=== PATIENT | male | born 1960 | race Caucasian/White ===

== ENCOUNTER 2018-08-17 22:26 | Inpatient (IN) | payer MEDICAID ==
[~2018-08-17] VITALS: Ht 188 cm; Wt 83.9 kg
[2018-08-17 23:03] VITALS: BP 123/61
--- NOTE | 2018-08-17 23:03 | NUR ---
MS MATERIAL REPROCESSING ASSOCIATE NOTES Received patient via gurney from [facility] assisted by 2 vp respiratory. Admitted to MS 324-1 due to R Hand Cellulitis under the service of Dr. Wilson. Assisted to bed comfortably. Patient noted ambulatory with steady gait. Admission routine done. Skin assessments done, photos taken and documented. Kept on bed clean, dry and comfortable. Call light within easy reach. Will continue to monitor accordingly.
[2018-08-17 23:58] VITALS: BP 123/61
--- NOTE | 2018-08-18 00:30 | NUR ---
MS RN NOTES Patient complained pain of R hand, 12/25. Awaiting for medication orders and verification at this time. Offered to patient to apply cold compress, patient refused. Offered to use sling, patient agreed. Informed patient that RN will administer the due meds once orders has been verified. Patient verbalized okay to wait. Will continue to monitor accordingly.
[2018-08-18] MEDS ORDERED: RALT400T PO (00:40)
[2018-08-18] MEDS ORDERED: FINA5TAB11 PO (00:40)
[2018-08-18] MEDS ORDERED: ATOR40TA PO (00:40)
[2018-08-18] MEDS ORDERED: LIDO30AD10 TP (00:40)
[2018-08-18] MEDS ORDERED: NARA2.5T2 PO (00:40)
[2018-08-18] MEDS ORDERED: ETRA200T PO (00:40)
[2018-08-18] MEDS ORDERED: EMTR1TAB12 PO (00:40)
[2018-08-18] MEDS ORDERED: PRIM50TA27 PO (00:40)
[2018-08-18] MEDS ORDERED: TAMS-12 PO (00:40)
[2018-08-18] MEDS ORDERED: LISI-659 PO (00:40)
[2018-08-18] MEDS ORDERED: ATEN50TA PO (00:54)
[2018-08-18] MEDS ORDERED: AMPH20CA3 PO (00:54)
[2018-08-18] MEDS ORDERED: TRIA80OI TP (00:54)
[2018-08-18] MEDS ORDERED: MUPI22OI7 MC (00:54)
[2018-08-18] MEDS ORDERED: OXYC15TA2 PO (00:54)
[2018-08-18] MEDS ORDERED: FENT1PAT2 TD (00:54)
[2018-08-18] MEDS ORDERED: METF-441 PO (00:54)
[2018-08-18] MEDS ORDERED: CYCL5TAB PO (00:54)
[2018-08-18] MEDS ORDERED: VENL100T4 PO (00:54)
[2018-08-18] MEDS ORDERED: BUSP10TA3 PO (00:54)
[2018-08-18] MEDS ORDERED: CHOL20004 PO (00:54)
[2018-08-18] MEDS ORDERED: INSU100I26 SQ (00:54)
[2018-08-18] MEDS ORDERED: INSU100V8 SQ (00:54)
[2018-08-18] MEDS ORDERED: ASPI-1165 PO (00:54)
[2018-08-18] MEDS ORDERED: FENT1PAT6 TD (00:54)
[2018-08-18] MEDS ORDERED: HYDR25TA4 PO (00:54)
[2018-08-18] MEDS ORDERED: TRAZ150T75 PO (00:54)
[2018-08-18] MEDS ORDERED: FENO160T5 PO (00:54)
[2018-08-18] MEDS ORDERED: MAGN400T26 PO (00:55)
[2018-08-18] MEDS ORDERED: HYDR-4076 PO (00:56)
[2018-08-18] MEDS ORDERED: ONDA4TAB11 SL (00:58)
[2018-08-18] MEDS ORDERED: OXYC-454 PO (01:04)
[2018-08-18] MEDS ORDERED: OXYC-128 PO (01:04)
[2018-08-18] MEDS ORDERED: MAGNESIUM HYDROXIDE 30 ML UDC PO PRN (01:30)
[2018-08-18] MEDS ORDERED: ACETAMINOPHEN 325 MG TABLET PO PRN (01:30)
[2018-08-18] MEDS ORDERED: ZOLPIDEM TARTRATE 5 MG TABLET PO PRN (01:30)
[2018-08-18] MEDS ORDERED: DEXTROSE 50%-WATER 50 ML DISP.SYRIN IV PRN (01:30)
[2018-08-18] MEDS ORDERED: ONDANSETRON HCL/PF 4 MG/2 ML VIAL IVP PRN (01:30)
[2018-08-18] MEDS: oxyCODONE/APAP (5/325 MG) 1 UDTAB TABLET PO PRN ×5 (01:54→22:09)
--- NOTE | 2018-08-18 01:54 | NUR ---
MS RN NOTES Patient went to bathroom. Patient claimed vomited a total of x3, food content. Patient claimed nauseous. Administered Zofran as ordered. Will continue to monitor accordingly.
[2018-08-18] MEDS: TAMSULOSIN 0.4 MG CAP.SR.24H PO SCH ×2 (01:56→14:32)
[2018-08-18] MEDS ORDERED: VANCOMYCIN 1.25 GM in IV D5W 500 ML IV ONE (02:00)
[2018-08-18] MEDS ORDERED: VANCOMYCIN 1 GM VIAL ONE (02:07)
[2018-08-18] MEDS ORDERED: VANCOMYCIN 500 MG VIAL ONE (02:08)
--- NOTE | 2018-08-18 02:52 | NUR ---
MS RN NOTES Patient awake, claiming unable to asleep and asking if he has sleeping pills to take. Ambien was ordered. Offered to patient with caution. Instructed patient that this medication may cause dizziness, thus encouraged patient to refrain from walking and to call for assistance if getting off the bed. Patient verbalized understanding. Administered Ambien as ordered.
--- NOTE | 2018-08-18 06:31 | NUR ---
MS RN CLOSING NOTES Patient asleep on High-Miner's position on bed with patent peripheral IV line LAC G#20. On RA, no SOB/respiratory distress noted. Medicated for pain, noted minimally effective. N/V resolved with medication as ordered. IV ATB given as ordered, tolerated well, no ASE noted. Afebrile the whole shift. Still with complaints of pain 8/10 R hand. Endorsed to the next shift.
[2018-08-18] MEDS: BLOOD SUGAR DIAGNOSTIC 1 EACH STRIP IN SCH ×4 (06:41→22:19)
[2018-08-18 06:47] LABS: THYROID STIMULATING HORMONE 0.397 uIU/mL (0.358-3.74)
[2018-08-18 06:52] LABS: BILIRUBIN,TOTAL 0.4 mg/dL (0.2-1.0); CALCIUM, SERUM 9.2 mg/dL (8.5-10.1); CREATININE 1.5 mg/dL (0.6-1.3); MAGNESIUM 1.7 mg/dL (1.8-2.4); PHOSPHORUS 4.2 mg/dL (2.5-4.9); POTASSIUM 4.3 mmol/L (3.5-5.1); TOTAL PROTEIN, SERUM 7.5 g/dL (6.4-8.2)
[2018-08-18 07:02] LABS: BASOPHILS % (AUTO) 0.3 % (0.0-2.0); EOSINOPHILS % (AUTO) 0.9 % (0.0-6.0); HEMATOCRIT 30 % (39-51); LYMPHOCYTES # (AUTO) 4.3 /CMM (0.8-4.8); LYMPHOCYTES % (AUTO) 31.7 % (20.0-44.0); MEAN CORPUSCULAR HGB CONC 33 g/dl (31.0-36.0); MEAN CORPUSCULAR VOLUME 86 fL (80-96); MONOCYTES # (AUTO) 0.9 /CMM (0.1-1.30); MONOCYTES % (AUTO) 6.5 % (2.0-12.0); NEUTROPHILS # (AUTO) 8.3 /CMM (1.8-8.9); NEUTROPHILS % (AUTO) 60.6 % (43.0-81.0); PLATELET COUNT (AUTO) 452 /CMM (150-450); RED BLOOD CELL COUNT(AUTO) 3.48 MIL/uL (4.5-6.0); WHITE BLOOD COUNT (AUTO) 13.7 K/uL (4.3-11.0)
--- NOTE | 2018-08-18 07:44 | NUR ---
RN OPENING NOTES PT AWAKE AND RESTING IN BED. NO COMPLAINTS OF SOB OR DISTRESS AT THIS TIME. PER PT BECA[place] HE GETS BIT BY SPIDERS OFTEN. PT HAS A LEFT UPPER ARM #20 IV INTACT AND PATENT. SAFETY PRECAUTIONS IN PLACE, BED IN LOWEST LOCKED POSITION, X2 SIDE RAILS UP AND CALL LIGHT WITHIN REACH. WILL CONTINUE TO MONITOR.
[2018-08-18 08:00] VITALS: BP 123/64
[2018-08-18] MEDS ORDERED: FEE PK DOSING 1 MIN EA MC ONE (08:00)
[2018-08-18] MEDS: PANTOPRAZOLE 40 MG TABLET.DR PO SCH (08:26)
[2018-08-18] MEDS: RALTEGRAVIR POTASSIUM 400 MG TABLET PO SCH ×2 (08:28→16:30)
[2018-08-18] MEDS: PRIMIDONE 50 MG TABLET PO SCH ×2 (08:28→16:28)
[2018-08-18] MEDS: CHOLECALCIFEROL 1,000 UNIT TABLET (VIT D3) PO SCH (08:28)
[2018-08-18] MEDS: ATENOLOL 50 MG TABLET PO SCH (08:29)
[2018-08-18] MEDS: FINASTERIDE (5 MG) 5 MG TABLET PO SCH (08:29)
[2018-08-18] MEDS: DOCUSATE SODIUM 100 MG CAPSULE PO SCH ×2 (08:29→16:28)
[2018-08-18] MEDS: hydrALAZINE HCL 25 MG TABLET PO SCH ×3 (08:30→16:29)
[2018-08-18] MEDS ORDERED: EMTRICITABINE/TENOFOVIR 1 TAB PO SCH (09:00)
[2018-08-18] MEDS ORDERED: NARATRIPTAN HCL 2.5 MG PO SCH (09:00)
--- NOTE | 2018-08-18 09:48 | NUR ---
RN NOTES CLARIFIED MEDICATIONS WITH PATIENT AND PHARMACY. PER PATIENT UNKNOWN DOSAGE LEVELS OF FLEXERIL AND LISINOPRIL. PER PATIENT USES [facility] AT [facility], PHONE NUMBER GIVEN TO PHARMACY. PER PHARMACY PATIENT TO BRING IN NARATRIPTAN, FENOFIBRATE, ETRAVIRINE HOME MEDICATION.
[2018-08-18] MEDS ORDERED: CYCLOBENZAPRINE 10 MG TABLET PO PRN (09:50)
[2018-08-18] MEDS ORDERED: LIDOCAINE 5% (PATCH) 1 EA PATCH TP PRN (09:53)
[2018-08-18] MEDS: busPIRone 5 MG TABLET PO SCH ×3 (10:13→16:29)
--- NOTE | 2018-08-18 10:18 | NUR ---
WOUND CARE CONSULT: PT PRESENTS WITH RT HAND ABSCESS, S/P I&D WITH PURULENT DRAINAGE AND SWELLING OF HAND, PRESENT ON ADMISSION. PT REFUSED FULL SKIN ASSESSMENT. UNABLE TO PROBE WOUND DUE TO DISCOMFORT. RECOMMEND PLASTIC SURGERY CONSULT. WILL SEE PRN. MOLINA IN AGREEMENT WITH PLAN OF CARE.
[2018-08-18] MEDS: TENOFOVIR DISOPROXIL FUMARATE 300 MG TABLET PO SCH (11:14)
[2018-08-18] MEDS: LISINOPRIL (20MG) 20 MG TABLET PO SCH (11:14)
[2018-08-18] MEDS: EMTRICITABINE 200 MG CAPSULE PO SCH (11:14)
[2018-08-18] MEDS: INSULIN REGULAR, HUMAN 100 UNIT/ML 3 ML VIAL SQ PRN ×2 (12:28→16:35)
[2018-08-18] MEDS ORDERED: LIDOCAINE 2%-EPI 1:100,000 30 ML VIAL TP ONE (15:30)
[2018-08-18] MEDS ORDERED: SILVER NITRATE APPLICATOR 1 EA BOX TP ONE (15:30)
[2018-08-18 16:00] VITALS: BP 115/71
[2018-08-18] MEDS: VANCOMYCIN 1 GM in IV D5W 250 ML IV SCH (16:27)
--- NOTE | 2018-08-18 17:00 | NUR ---
RN NOTES CONFIRMED WITH DR PAVITHRA WARE 50MCG Q48. WILL FAX TO PHARMACY. PATIENT'S BROUGHT IN HOME MEDICATIONS. WILL SEND TO PHARMACY.
[2018-08-18] MEDS: GLUCERNA SHAKE 237 ML CAN PO SCH (17:25)
[2018-08-18] MEDS ORDERED: FENTANYL TD PATCH (50 MCG/HR) 50 MCG/HR PATCH.TD72 TD SCH (18:00)
--- NOTE | 2018-08-18 19:04 | NUR ---
RN NOTES FENTANYL PATCH ON RIGHT UPPER ARM.
[2018-08-18 19:47] LABS: APPEARANCE,URINE CLEAR (CLEAR); BILIRUBIN,URINE NEGATIVE (NEGATIVE); BLOOD, URINE NEGATIVE Ery/uL (NEGATIVE); COLOR,URINE YELLOW (YELLOW); KETONES,URINE NEGATIVE (NEGATIVE); LEUKOCYTE ESTERASE ,URINE NEGATIVE (NEGATIVE); NITRITE, URINE NEGATIVE (NEGATIVE); PROTEIN,URINE NEGATIVE (NEGATIVE); UGLUCOSE TRACE mg/dL (NEGATIVE); UROBILINOGEN,URINE 0.2 EU/dL (0.2)
[2018-08-18 20:23] LABS: CREATININE, URINE 16.3 MG/DL (30.0-125.0); URINE TOTAL PROTEIN 3.5 mg/dL (0-11.9)
[2018-08-18 20:29] VITALS: BP 123/71
[2018-08-18 20:30] LABS: EOSINOPHIL,URINE None Seen
[2018-08-18] MEDS: ATORVASTATIN 40 MG TABLET PO SCH (22:08)
[2018-08-18] MEDS: MAGNESIUM OXIDE 400 MG TABLET PO SCH (22:08)
[2018-08-18] MEDS: TRAZODONE 50 MG TABLET PO SCH (22:09)
[2018-08-18] MEDS: VENLAFAXINE 25 MG TABLET PO SCH (22:10)
[2018-08-18] MEDS: *INSULIN REGULAR(HUMULIN R)HUM 100 UNIT/ML VIAL SQ PRN (22:17)
[2018-08-18] MEDS: INSULIN GLARGINE, 100 UNIT/ML CARTRIDGE SQ SCH (22:18)
[2018-08-19] MEDS: TAMSULOSIN 0.4 MG CAP.SR.24H PO SCH ×2 (02:15→13:05)
[2018-08-19] MEDS: oxyCODONE/APAP (5/325 MG) 1 UDTAB TABLET PO PRN ×4 (02:21→20:17)
[2018-08-19] MEDS: VANCOMYCIN 1 GM in IV D5W 250 ML IV SCH (02:22)
--- NOTE | 2018-08-19 06:30 | NUR ---
MS/RN PATIENT IS AWAKE AT HIS TIME, COMFORTABLE, NO C/O PAIN, NO DISTRESS NOTED, NPO AFTER MIDNIGHT STATUS, ACCU CHECK BLOOD SUGAR WAS 157, DID NOT COVER WITH INSULIN DUE TO NPO STATUS. ALL NEEDS ATTENDED AT THIS TIME, WILL CONTINUE TO MONITOR.
[2018-08-19 07:08] LABS: *BASOS 0 % (Not Estab.); *BASOS, ABSOLUTE 0.1 x10E3/uL (0.0-0.2); *EOS 1 % (Not Estab.); *EOS, ABSOLUTE 0.1 x10E3/uL (0.0-0.4); *HCT 30.2 % (37.5-51.0); *HGB 9.9 g/dL (13.0-17.7); *IMMATURE GRANULOCYTES 0 % (Not Estab.); *LYMPHOCYTES 31 % (Not Estab.); *LYMPHS, ABSOLUTE 4.2 x10E3/uL (0.7-3.1); *MCH 28.5 pg (26.6-33.0); *MCHC 32.8 g/dL (31.5-35.7); *MCV 87 fL (79-97); *MONOCYTES 7 % (Not Estab.); *MONOS, ABSOLUTE 0.9 x10E3/uL (0.1-0.9); *NEUTROPHILS 61 % (Not Estab.); *NEUTROPHILS, ABSOLUTE 8.1 x10E3/uL (1.4-7.0); *PLT 423 x10E3/uL (150-379); *RBC 3.47 x10E6/uL (4.14-5.80); *RDW 15.6 % (12.3-15.4)
--- NOTE | 2018-08-19 07:20 | NUR ---
RN OPENING NOTES PT RESTING IN BED. NO COMPLAINTS OF PAIN, SOB OR DISTRESS AT THIS TIME. PT HAS A MADYSON #20 IV INTACT AND PATENT. PT SATING WELL ON RA. SAFETY PRECAUTIONS IN PLACE, BED IN LOWEST LOCKED POSITION, X2 SIDE RAILS UP AND CALL LIGHT WITHIN REACH. WILL CONTINUE TO MONITOR.
[2018-08-19 07:29] LABS: BASOPHILS % (AUTO) 0.4 % (0.0-2.0); EOSINOPHILS % (AUTO) 1.4 % (0.0-6.0); HEMATOCRIT 30 % (39-51); HEMOGLOBIN 10.2 g/dL (13.5-17.5); LYMPHOCYTES # (AUTO) 3.7 /CMM (0.8-4.8); MEAN CORPUSCULAR HGB CONC 34 g/dl (31.0-36.0); MEAN CORPUSCULAR VOLUME 84 fL (80-96); MONOCYTES # (AUTO) 0.8 /CMM (0.1-1.30); NEUTROPHILS # (AUTO) 5.3 /CMM (1.8-8.9); NEUTROPHILS % (AUTO) 53.2 % (43.0-81.0); PLATELET COUNT (AUTO) 414 /CMM (150-450); RED BLOOD CELL COUNT(AUTO) 3.55 MIL/uL (4.5-6.0)
[2018-08-19 07:41] LABS: CALCIUM, SERUM 9.3 mg/dL (8.5-10.1); CREATININE 0.9 mg/dL (0.6-1.3); PHOSPHORUS 3.7 mg/dL (2.5-4.9); POTASSIUM 4.4 mmol/L (3.5-5.1)
[2018-08-19] MEDS: BLOOD SUGAR DIAGNOSTIC 1 EACH STRIP IN SCH ×4 (07:51→21:28)
[2018-08-19 08:00] VITALS: BP 119/69
[2018-08-19] MEDS: GLUCERNA SHAKE 237 ML CAN PO SCH ×3 (08:00→18:08)
[2018-08-19] MEDS: ATENOLOL 50 MG TABLET PO SCH (08:25)
[2018-08-19] MEDS: FINASTERIDE (5 MG) 5 MG TABLET PO SCH (08:25)
[2018-08-19] MEDS: DOCUSATE SODIUM 100 MG CAPSULE PO SCH ×2 (08:25→17:07)
[2018-08-19] MEDS: CHOLECALCIFEROL 1,000 UNIT TABLET (VIT D3) PO SCH (08:26)
[2018-08-19] MEDS: busPIRone 5 MG TABLET PO SCH ×3 (08:26→17:06)
[2018-08-19] MEDS: EMTRICITABINE 200 MG CAPSULE PO SCH (08:27)
[2018-08-19] MEDS: TENOFOVIR DISOPROXIL FUMARATE 300 MG TABLET PO SCH (08:27)
[2018-08-19] MEDS: RALTEGRAVIR POTASSIUM 400 MG TABLET PO SCH ×2 (08:27→17:07)
[2018-08-19] MEDS: FENOFIBRATE 160 MG PO SCH (08:28)
[2018-08-19] MEDS: ETRAVIRINE 200 MG PO SCH ×2 (08:28→17:05)
[2018-08-19] MEDS: LISINOPRIL (20MG) 20 MG TABLET PO SCH (08:35)
[2018-08-19] MEDS: PRIMIDONE 50 MG TABLET PO SCH ×2 (08:35→17:08)
[2018-08-19] MEDS: PANTOPRAZOLE 40 MG TABLET.DR PO SCH (08:35)
[2018-08-19] MEDS: hydrALAZINE HCL 25 MG TABLET PO SCH ×3 (08:36→17:06)
--- NOTE | 2018-08-19 09:18 | NUR ---
RN NOTES PT LEFT UNIT FOR CT RIGHT HAND.
--- NOTE | 2018-08-19 09:36 | NUR ---
RN NOTES PT RETURNED FROM CT. WILL CONTINUE TO MONITOR.
[2018-08-19 13:09] LABS: *% CD 4 POS. LYMPH 21.2 % (30.8-58.5); *% CD 8 POS. LYMPH 63.4 % (12.0-35.5); *ABSOLUTE CD 4 HELPER 890 /uL (359-1519); *ABSOLUTE CD 8 SUPPRESSOR 2663 /uL (109-897); *CD4/CD8 RATIO 0.33 (0.92-3.72)
[2018-08-19] MEDS: AZTREONAM 1 G in IV NS 0.9% 100 ML IV SCH ×2 (14:26→20:15)
[2018-08-19 16:00] VITALS: BP 121/70
[2018-08-19] MEDS: VANCOMYCIN 1.25 GM in IV D5W 500 ML IV SCH (17:02)
[2018-08-19] MEDS: INSULIN REGULAR, HUMAN 100 UNIT/ML 3 ML VIAL SQ PRN (17:17)
--- NOTE | 2018-08-19 18:53 | NUR ---
RN CLOSING NOTES PT RESTING IN BED. NO COMPLAINTS OF PAIN, SOB OR DISTRESS AT THIS TIME. PT HAS A MADYSON #20 IV INTACT AND PATENT. PT SATING WELL ON RA. SAFETY PRECAUTIONS IN PLACE, BED IN LOWEST LOCKED POSITION, X2 SIDE RAILS UP AND CALL LIGHT WITHIN REACH. WILL ENDORSE TO INFORMATION TECHNOLOGY ADVISOR NURSE FOR CONTINUITY OF CARE.
--- NOTE | 2018-08-19 19:30 | NUR ---
RN MS OPENING NOTES RECEIVED PATIENT IN BED AWAKE, ALERT AND ORIENTED X4, VERBALLY RESPONSIVE, ABLE TO MAKE NEEDS KNOWN. BREATHING EVEN AND UNLABORED. NO SOB NOTED .TOLERATING ROOM AIR. WITH COMPLAINTS OF PAIN ON THE RIGHT HAND. WILL GIVE PRN PAIN MEDICATION ON DUE TIME. IV ON RIGHT UPPER ARM INTACT AND PATENT. SKIN DRY AND WARM TO TOUCH. AFEBRILE. DRESSING ON RIGHT HAND DRY AND INTACT. ALL OTHER NEEDS ATTENDED TO. SAFETY MEASURES IN PLACE. CALL LIGHT WITHIN REACH. WILL CONTINUE TO MONITOR.
[2018-08-19 20:00] VITALS: BP_SYST 110; BP_SYST 119; BP_DIAS 63; BP_DIAS 66
[2018-08-19] MEDS: INSULIN GLARGINE, 100 UNIT/ML CARTRIDGE SQ SCH (21:27)
[2018-08-19] MEDS: *INSULIN REGULAR(HUMULIN R)HUM 100 UNIT/ML VIAL SQ PRN (21:28)
[2018-08-19] MEDS: TRAZODONE 50 MG TABLET PO SCH (21:28)
[2018-08-19] MEDS: ATORVASTATIN 40 MG TABLET PO SCH (21:29)
[2018-08-19] MEDS: VENLAFAXINE 25 MG TABLET PO SCH (21:29)
[2018-08-19] MEDS: MAGNESIUM OXIDE 400 MG TABLET PO SCH (21:29)
[2018-08-20] MEDS: oxyCODONE/APAP (5/325 MG) 1 UDTAB TABLET PO PRN ×5 (00:30→19:54)
[2018-08-20] MEDS: TAMSULOSIN 0.4 MG CAP.SR.24H PO SCH ×2 (00:30→14:31)
[2018-08-20] MEDS: VANCOMYCIN 1.25 GM in IV D5W 500 ML IV SCH ×2 (04:08→17:04)
--- NOTE | 2018-08-20 05:09 | NUR ---
RN MS NOTES PATIENT WALKING AROUND THE UNIT MOST OF THE NIGHT. PER PATIENT, HE CAN'T SLEEP DUE TO HIS PAIN ON HIS RIGHT HAND DESPITE PRN PAIN MEDICATIONS. ALSO PER PATIENT, HE LIKES TO STRETCH HIS LEGS.
--- NOTE | 2018-08-20 05:40 | NUR ---
RN MS NOTES PATIENT WITH SCHEDULED AZACTAM 1G IV AT 0500. MEDICATION NOT FOUND IN IV BINS OR PATIENT'S CASSETTE. FAXED MEDICATION AND CALLED HUMAN SERVICES CARE SPECIALIST. PER HUMAN SERVICES CARE SPECIALIST, SHE WILL TRY TO GET THE MEDICATION. IF NOT, TO CALL PHARMACY WHEN THEY OPEN TO REQUEST IT.
[2018-08-20 06:27] LABS: BASOPHILS # (AUTO) 0.1 /CMM (0.0-0.2); BASOPHILS % (AUTO) 0.6 % (0.0-2.0); EOSINOPHILS % (AUTO) 1.6 % (0.0-6.0); HEMATOCRIT 28 % (39-51); HEMOGLOBIN 9.5 g/dL (13.5-17.5); LYMPHOCYTES % (AUTO) 42.8 % (20.0-44.0); MEAN CORPUSCULAR HGB CONC 34 g/dl (31.0-36.0); MEAN CORPUSCULAR VOLUME 85 fL (80-96); MONOCYTES # (AUTO) 0.8 /CMM (0.1-1.30); MONOCYTES % (AUTO) 8.6 % (2.0-12.0); NEUTROPHILS # (AUTO) 4.3 /CMM (1.8-8.9); NEUTROPHILS % (AUTO) 46.4 % (43.0-81.0); PLATELET COUNT (AUTO) 455 /CMM (150-450); RED BLOOD CELL COUNT(AUTO) 3.35 MIL/uL (4.5-6.0); WHITE BLOOD COUNT (AUTO) 9.3 K/uL (4.3-11.0)
[2018-08-20] MEDS: BLOOD SUGAR DIAGNOSTIC 1 EACH STRIP IN SCH ×4 (06:40→21:54)
[2018-08-20] MEDS: INSULIN REGULAR, HUMAN 100 UNIT/ML 3 ML VIAL SQ PRN ×3 (06:42→18:08)
[2018-08-20 06:48] LABS: CALCIUM, SERUM 8.6 mg/dL (8.5-10.1); CREATININE 1.1 mg/dL (0.6-1.3); MAGNESIUM 1.9 mg/dL (1.8-2.4); PHOSPHORUS 3.1 mg/dL (2.5-4.9); POTASSIUM 4.8 mmol/L (3.5-5.1)
--- NOTE | 2018-08-20 06:56 | NUR ---
RN MS CLOSING NOTES PATIENT RESTING IN BED. NO ACUTE CHANGES THROUGHOUT SHIFT. BREATHING EVEN AND UNLABORED. NO SOB NOTED .TOLERATING ROOM AIR. STILL WITH COMPLAINTS OF PAIN ON THE RIGHT HAND. PATIENT AWARE THAT PRN PAIN MEDICATION IS NOT DUE YET. WILL INFORM DAY NURSE. IV ON RIGHT UPPER ARM INTACT AND PATENT. SKIN DRY AND WARM TO TOUCH. AFEBRILE. DRESSING ON RIGHT HAND DRY AND INTACT - CHANGED TWICE THROUGHOUT SHIFT. ALL OTHER NEEDS ATTENDED TO. SAFETY MEASURES IN PLACE. CALL LIGHT WITHIN REACH. WILL ENDORSE TO ONCOMING NURSE FOR IVAN.
--- NOTE | 2018-08-20 07:01 | NUR ---
RN MS NOTES CALLED PHARMACY REGARDING AZACTAM 1G IV. PER PHARMACY REP, THEY WILL SEND THE MEDICATION UP TO THE UNIT
--- NOTE | 2018-08-20 07:42 | NUR ---
RN MS OPENING NOTES Patient resting in bed, right hand pain from the spider bite is the only discomfort from the patient. Patient remains on room air, no sob noted, IV is on Left Upper Arm and is infusing. Bed remains on lowest position, call light within reach.
[2018-08-20 08:32] VITALS: BP 127/72
[2018-08-20] MEDS: TENOFOVIR DISOPROXIL FUMARATE 300 MG TABLET PO SCH (08:34)
[2018-08-20] MEDS: RALTEGRAVIR POTASSIUM 400 MG TABLET PO SCH ×2 (08:36→17:05)
[2018-08-20] MEDS: ETRAVIRINE 200 MG PO SCH ×2 (08:36→17:04)
[2018-08-20] MEDS: EMTRICITABINE 200 MG CAPSULE PO SCH (08:36)
[2018-08-20] MEDS: DOCUSATE SODIUM 100 MG CAPSULE PO SCH ×2 (08:37→17:06)
[2018-08-20] MEDS: LISINOPRIL (20MG) 20 MG TABLET PO SCH (08:38)
[2018-08-20] MEDS: hydrALAZINE HCL 25 MG TABLET PO SCH ×3 (08:39→17:06)
[2018-08-20] MEDS: CHOLECALCIFEROL 1,000 UNIT TABLET (VIT D3) PO SCH (08:39)
[2018-08-20] MEDS: FINASTERIDE (5 MG) 5 MG TABLET PO SCH (08:40)
[2018-08-20] MEDS: PANTOPRAZOLE 40 MG TABLET.DR PO SCH (08:41)
[2018-08-20] MEDS: PRIMIDONE 50 MG TABLET PO SCH ×2 (08:41→17:05)
[2018-08-20] MEDS: busPIRone 5 MG TABLET PO SCH ×3 (08:41→17:06)
[2018-08-20] MEDS: ATENOLOL 50 MG TABLET PO SCH (08:42)
[2018-08-20] MEDS: GLUCERNA SHAKE 237 ML CAN PO SCH ×3 (08:43→17:06)
[2018-08-20] MEDS: FENOFIBRATE 160 MG PO SCH (08:44)
[2018-08-20] MEDS: AZTREONAM 1 G in IV NS 0.9% 100 ML IV SCH ×3 (09:18→20:57)
[2018-08-20] MEDS: INSULIN LISPRO/ASPART 100 UNIT/ML CARTRIDGE SQ SCH ×2 (12:52→18:09)
[2018-08-20 16:08] VITALS: BP 121/65
--- NOTE | 2018-08-20 18:49 | NUR ---
RN MS CLOSING NOTES Patient remains on room air, no sob noted. Patient is a/o x4, no changes in his mental status all shift. Patient is BRP and has intact skin. Patient's Left fore arm #22 IV is infusing and flowing well. Kept his right hand elevated to reduce swelling. Patient's bed is at the lowest setting, call light within reach. All needs are met and will give report to the next RN bedside.
--- NOTE | 2018-08-20 19:30 | NUR ---
MS RN NOTES RECEIVED AWAKE,LAYING COMFORTABLY ON BED,A/O X4,RIGHT HAND DRESSING INTACT AND DRY.SA;INE LOCK LEFT FORE ARM INTACT AND PATENT.NS AT TKO RATE IN PROGRESS.CALL LIGHT IN REACH,NEEDS ANTICIPATED.
--- NOTE | 2018-08-20 19:54 | NUR ---
MS RN NOTES PAIN MANAGEMENT C/O PAIN 5/10 ON PAIN SCALE VIA RIGHT HAND,PERCOCET 1 TAB PO GIVEN ORDERED.
[2018-08-20] MEDS: VENLAFAXINE 25 MG TABLET PO SCH (21:53)
[2018-08-20] MEDS: MAGNESIUM OXIDE 400 MG TABLET PO SCH (21:54)
[2018-08-20] MEDS: ATORVASTATIN 40 MG TABLET PO SCH (21:54)
--- NOTE | 2018-08-20 22:00 | NUR ---
MS RN NOTES PO MEDS ADMINISTERED,TAKEN WELL.
--- NOTE | 2018-08-20 22:00 | NUR ---
MS RN NOTES ACCU-CHECK BLOOD SUGAR CHECK 209MG/DL,COVERED WITH HUMULIN R 4 UNITS PER SLIDING SCALE.LANTUS 60 UNITS GIVEN SCHEDULED.SNACKS PROVIDED AT BEDSIDE,
[2018-08-20] MEDS: TRAZODONE 50 MG TABLET PO SCH (22:01)
[2018-08-20] MEDS: *INSULIN REGULAR(HUMULIN R)HUM 100 UNIT/ML VIAL SQ PRN (22:05)
[2018-08-20] MEDS: INSULIN GLARGINE, 100 UNIT/ML CARTRIDGE SQ SCH (22:06)
[2018-08-21] MEDS: TAMSULOSIN 0.4 MG CAP.SR.24H PO SCH ×2 (01:30→14:04)
[2018-08-21] MEDS: oxyCODONE/APAP (5/325 MG) 1 UDTAB TABLET PO PRN ×3 (02:23→14:10)
[2018-08-21] MEDS: VANCOMYCIN 1.25 GM in IV D5W 500 ML IV SCH (03:58)
[2018-08-21] MEDS: AZTREONAM 1 G in IV NS 0.9% 100 ML IV SCH ×2 (05:10→14:04)
[2018-08-21] MEDS: BLOOD SUGAR DIAGNOSTIC 1 EACH STRIP IN SCH ×2 (05:45→12:25)
[2018-08-21 06:29] LABS: BASOPHILS # (AUTO) 0.1 /CMM (0.0-0.2); BASOPHILS % (AUTO) 0.7 % (0.0-2.0); EOSINOPHILS % (AUTO) 1.6 % (0.0-6.0); HEMATOCRIT 29 % (39-51); HEMOGLOBIN 9.7 g/dL (13.5-17.5); LYMPHOCYTES % (AUTO) 39.1 % (20.0-44.0); MEAN CORPUSCULAR HGB CONC 34 g/dl (31.0-36.0); MEAN CORPUSCULAR VOLUME 84 fL (80-96); MONOCYTES # (AUTO) 0.6 /CMM (0.1-1.30); MONOCYTES % (AUTO) 7.4 % (2.0-12.0); NEUTROPHILS % (AUTO) 51.2 % (43.0-81.0); PLATELET COUNT (AUTO) 443 /CMM (150-450); WHITE BLOOD COUNT (AUTO) 7.7 K/uL (4.3-11.0)
[2018-08-21 06:40] VITALS: BP 148/73
[2018-08-21 06:43] LABS: CALCIUM, SERUM 8.8 mg/dL (8.5-10.1); CREATININE 0.9 mg/dL (0.6-1.3); MAGNESIUM 1.8 mg/dL (1.8-2.4); PHOSPHORUS 2.9 mg/dL (2.5-4.9); POTASSIUM 4.3 mmol/L (3.5-5.1)
--- NOTE | 2018-08-21 07:03 | NUR ---
MS YANIV NOTES WITH GOOD NIGHT SLEEP LAST NIGHT,TRAZODONE EFFECTIVE.BLOOD SUGAR CHECKED 125,NO INSULIN COVERAGE.DRESSING CHANGED DONE ON LEFT HAND.WILL ENDORSE TO DAY NURSE FOR KILEY Addendum: 08/21/18 at 0706 by DOC KEYS RN FOR CONTINUITY OF CARE.
[2018-08-21] MEDS: INSULIN LISPRO/ASPART 100 UNIT/ML CARTRIDGE SQ SCH ×2 (07:30→12:29)
--- NOTE | 2018-08-21 07:34 | NUR ---
RN MS OPENING NOTES Received patient on room air, no sob noted. Patient sleeping comfortably, denies pain. Patient's Right hand is not showing any bleeding. Patient's bed is at the lowest setting, call light within reach.
[2018-08-21 08:00] VITALS: BP 134/78
[2018-08-21] MEDS: busPIRone 5 MG TABLET PO SCH ×2 (08:16→12:18)
[2018-08-21] MEDS: CHOLECALCIFEROL 1,000 UNIT TABLET (VIT D3) PO SCH (08:16)
[2018-08-21] MEDS: hydrALAZINE HCL 25 MG TABLET PO SCH ×2 (08:17→12:18)
[2018-08-21] MEDS: LISINOPRIL (20MG) 20 MG TABLET PO SCH (08:17)
[2018-08-21] MEDS: FINASTERIDE (5 MG) 5 MG TABLET PO SCH (08:18)
[2018-08-21] MEDS: PANTOPRAZOLE 40 MG TABLET.DR PO SCH (08:18)
[2018-08-21] MEDS: PRIMIDONE 50 MG TABLET PO SCH (08:18)
[2018-08-21] MEDS: RALTEGRAVIR POTASSIUM 400 MG TABLET PO SCH (08:19)
[2018-08-21] MEDS: TENOFOVIR DISOPROXIL FUMARATE 300 MG TABLET PO SCH (08:19)
[2018-08-21] MEDS: ATENOLOL 50 MG TABLET PO SCH (08:20)
[2018-08-21] MEDS: FENOFIBRATE 160 MG PO SCH (08:21)
[2018-08-21] MEDS: DOCUSATE SODIUM 100 MG CAPSULE PO SCH (08:21)
[2018-08-21] MEDS: EMTRICITABINE 200 MG CAPSULE PO SCH (08:21)
[2018-08-21] MEDS: ETRAVIRINE 200 MG PO SCH (08:24)
[2018-08-21] MEDS: GLUCERNA SHAKE 237 ML CAN PO SCH (08:25)
--- NOTE | 2018-08-21 08:41 | NUR ---
RN NOTES Humalog not given, patient's glucose is 100. Patient refused as well. Addendum: 08/21/18 at 0842 by STACEY AWAN RN Patient finished eating breakfast and ate most of it.
[2018-08-21] MEDS ORDERED: CLIN300C11 PO (11:22)
[2018-08-21] MEDS: INSULIN REGULAR, HUMAN 100 UNIT/ML 3 ML VIAL SQ PRN (12:29)
[2018-08-21 16:00] VITALS: BP 131/64
--- NOTE | 2018-08-21 16:41 | NUR ---
RN D/C NOTES Patient on room air showing no sob, patient's right arm has a new dressing in place. Patient denies any pain other than his arm that was bitten by a spider. Patient's vital sign stable. Patient's belonging's are discharged with him. Cell phone, shorthand reporter, wallet, ring x2 is within patients possession. Patient's paperwork are with him and signed. Patient is given discharge instruction and patient stated that he understands them. Patient's right hand is taken a photo, along with his left arm. Patient left with his family named Yosi.
== END 2018-08-21 16:20 | disposition home or self-care (01) | DRG 383 ==
LOC: MED 22:26
PROVIDERS: ADMIT Internal Medicine; ATTEND Internal Medicine
DX: L03.113 Cellulitis of right upper limb (principal); N17.0 Acute kidney failure with tubular necrosis; E11.65 Type 2 diabetes mellitus with hyperglycemia; L02.511 Cutaneous abscess of right hand; E03.9 Hypothyroidism, unspecified; B19.20 Unspecified viral hepatitis C without hepatic coma; E78.5 Hyperlipidemia, unspecified; F32.9 Major depressive disorder, single episode, unspecified; E87.1 Hypo-osmolality and hyponatremia; F17.210 Nicotine dependence, cigarettes, uncomplicated; F90.9 Attention-deficit hyperactivity disorder, unspecified type; G43.909 Migraine, unspecified, not intractable, without status migrainosus; G89.29 Other chronic pain; K21.9 Gastro-esophageal reflux disease without esophagitis; N40.0 Benign prostatic hyperplasia without lower urinary tract symptoms; T63.301A Toxic effect of unspecified spider venom, accidental (unintentional), initial encounter; Z79.4 Long term (current) use of insulin; Z79.899 Other long term (current) drug therapy; Z87.11 Personal history of peptic ulcer disease; Z96.659 Presence of unspecified artificial knee joint; Z82.49 Family history of ischemic heart disease and other diseases of the circulatory system
CPT/HCPCS: 36415; 73200-TC; 80048-TC; 80053-TC; 80061-TC; 80202-TC; 81000-TC; 82550-TC; 82570-TC; 82962-TC; 83605-TC; 83735-TC; 83970; 84100-TC; 84155-TC; 84300-TC; 84443-TC; 85025-TC; 86360; 87070-TC; 87081-TC; A4565; A6402; A6403; A6407; G0378; J1815; J2405; J3370; J3490; J7030; J7050; J7060